=== PATIENT | male | born 1995 | race Caucasian/White ===

== ENCOUNTER 2017-07-06 02:58 | Emergency (ER) | payer OTHER ==
[~2017-07-06] VITALS: Ht 170.2 cm; Wt 80.0 kg
[~2017-07-06 02:58] MED LIST: AMOX500T PO
[2017-07-06 03:00] VITALS: BP 143/68; PULSE 108; RESP 16; TEMP 99.7; O2SAT 99
[2017-07-06] MEDS ORDERED: SODIUM CHLOR 0.9% 1000 ML INJ 1,000 ML IV ONE ×2 (03:15)
[2017-07-06] MEDS ORDERED: diphenhydrAMINE HCL 50 MG/ML VIAL IV PUSH ONE (03:15)
[2017-07-06] MEDS ORDERED: PROCHLORPERAZINE INJ 10 MG/2 ML VIAL IV PUSH ONE (03:15)
--- NOTE | 2017-07-06 03:36 | PD ---
HPI . Vomiting Chief Complaint: GI Complaint Time Seen by Provider: 03:09 Travel History International Travel<30 days: No Contact w/Intl Traveler<30days: No Traveled to known affect area: No History of Present Illness HPI Patient presents with a chief complaint of vomiting. Onset was 11 PM. He states that he had 3 or 4 episodes of "binge vomiting." No diarrhea. No fever. No abdominal pain. Symptoms unrelieved by Pepto-Bismol. PFSH Past Medical History Medical History: Denies Significant Hx Hx Anticoagulant Therapy: No Cardiovascular Problems: No Chemotherapy: No Cerebrovascular Accident: No Diabetes: No Diminished Hearing: No Respiratory: No Immunizations Current: Yes Tetanus Vaccination: Unknown Past Surgical History Surgical History: No Previous Surgery Social History Alcohol Use: No Tobacco Use: No Substance Use: No Allergies-Medications (Allergen,Severity, Reaction): Coded Allergies: dog dander (Unverified Allergy, Mild, 05/17/17) mold (Unverified Allergy, Mild, 05/17/17) cat dander (Unverified Adverse Reaction, Mild, 05/17/17) Reported Meds & Prescriptions Reported Meds & Active Scripts Active No Active Prescriptions or Reported Medications Review of Systems Except as stated in HPI: all other systems reviewed are Neg General / Constitutional: No: Fever, Chills Gastrointestinal: Positive: Nausea, Vomiting, No: Diarrhea, Abdominal Pain Genitourinary: No: Urgency, Frequency, Dysuria Physical Exam Narrative GENERAL: Healthy-appearing young man in no acute distress. SKIN: warm/dry. HEAD: Normocephalic. Atraumatic. EYES: Pupils equal and round. No scleral icterus. No injection or drainage. ENT: No nasal bleeding or discharge. Mucous membranes pink and moist. NECK: Trachea midline. Full range of motion without pain.. CARDIOVASCULAR: Regular rate and rhythm. Heart sounds normal. RESPIRATORY: No accessory muscle use. Clear to auscultation. Breath sounds equal bilaterally. GASTROINTESTINAL: Abdomen soft. Nontender. Bowel sounds present. Nondistended. MUSCULOSKELETAL: No obvious deformities. NEUROLOGICAL: Awake and alert. No obvious cranial nerve deficits. Motor grossly within normal limits. Normal speech. PSYCHIATRIC: Appropriate mood and affect; insight and judgment normal. Data Data Last Documented VS Vital Signs Date Time Temp Pulse Resp B/P (MAP) Pulse Ox O2 Delivery O2 Flow Rate FiO2 07/06/17 03:00 99.7 108 16 143/68 (93) 99 Orders Orders Sodium Chlor 0.9% 1000 Ml Inj (Ns 1000 M (07/06/17 03:15) Sodium Chlor 0.9% 1000 Ml Inj (Ns 1000 M (07/06/17 03:15) Prochlorperazine Inj (Compazine Inj) (07/06/17 03:15) Diphenhydramine Inj (Benadryl Inj) (07/06/17 03:15) MDM Medical Decision Making Medical Screen Exam Complete: Yes Emergency Medical Condition: Yes Differential Diagnosis Differential diagnosis includes but is not limited to viral gastritis, food poisoning, pancreatitis, pneumonia, hepatitis, acute coronary syndrome, Narrative Course Patient presents with vomiting. He is being treated with IV fluids as well as IV Compazine/Benadryl. He has had no further emesis since medication. Diagnosis Primary Impression: Vomiting Qualified Codes: R11.2 - Nausea with vomiting, unspecified Patient Instructions: Acute Nausea and Vomiting (DC), General Instructions Scripts No Active Prescriptions or Reported Meds Disposition: 01 DISCHARGE HOME Condition: Stable Kamryn Juares MD Jul 06, 2017 03:36
[2017-07-06] MEDS ORDERED: ZOFR4TAB PO (05:05)
== END 2017-07-06 04:45 | disposition home or self-care (01) ==
LOC: NEPC 02:58
DX: R11.2 Nausea with vomiting, unspecified (principal)
CPT/HCPCS: 96361; 96374; 96375; 99284; J0780; J1200; J7030